=== PATIENT | female | born 1995 | race Caucasian/White ===

== ENCOUNTER 2017-05-11 10:13 | Emergency (ER) | payer BC, OTHER ==
[2017-05-11 10:24] VITALS: TEMP 97.5
--- NOTE | 2017-05-11 10:26 | EDPHY ---
H & P Stated Complaint: l sided abd pain n/v HPI/ROS: HPI CHIEF COMPLAINT: Nausea, vomiting, left-sided abdominal pain HISTORY OF PRESENT ILLNESS: Patient very pleasant 22-year-old female she presents emergency room nausea vomiting abdominal pain. She describes pain located left lower quadrant. Her only medical history that she reports to me is ovarian cyst. She states around 630 this morning she developed this pain. It has been persistent. Associated nausea vomiting. Patient describes this pain as sharp stabbing. From left flank left lower quadrant. Past Medical History: Ovarian cysts, kidney stone Past Surgical History: Denies abdominal surgery Social History: Denies daily use of drugs alcohol tobacco products Family History: Noncontributory ROS REVIEW OF SYSTEMS: A comprehensive 10 point review of systems is otherwise negative aside from elements mentioned in the history of present illness. Exam Constitutional vomiting, anxious , triage nursing summary reviewed, vital signs reviewed, awake/alert. Eyes normal conjunctivae and sclera, EOMI, PERRLA. HENT normal inspection, atraumatic, moist mucus membranes, no epistaxis, neck supple/ no meningismus, no raccoon eyes. Respiratory clear to auscultation bilaterally, normal breath sounds, no respiratory distress, no wheezing. Cardiovascular rate normal, regular rhythm, no murmur, no edema, distal pulses normal. Gastrointestinal soft, non-tender, no rebound, no guarding, normal bowel sounds, no distension, no pulsatile mass. Genitourinary no CVA tenderness. Musculoskeletal no midline vertebral tenderness, full range of motion, no calf swelling, no tenderness of extremities, no meningismus, good pulses, neurovascularly intact. Skin pink, warm, & dry, no rash, skin atraumatic. Neurologic awake, alert and oriented x 3, AAOx3, moves all 4 extremities equally, motor intact, sensory intact, CN II-XII intact, normal cerebellar, normal vision, normal speech. Psychiatric normal mood/affect. Heme/Lymph/Immune no lymphadenopathy. Differential diagnosis includes but is not limited to and in no particular order : Bowel obstruction, appendicitis, gallbladder disease, diverticulitis, colitis , enteritis, perforated viscus, gastritis, GERD, esophagitis, urinary tract infection, pyelonephritis, kidney stones Medical Decision Making: Plan for this patient IV establishment, IV fluid bolus , IV Zofran for nausea, IV Dilaudid 1 mg for pain control. Will reassess her abdomen as initially when she arrived she has vomiting and screaming and lying on her side. Appears to be uncomfortable. Re-evaluation: 1323: CT scan is reviewed negative CT scan abdomen pelvis without contrast for left-sided flank pain. No visible stone. No acute inflammatory process seen on the CT scan. However there is right adnexal mass visualized. Additionally the patient a pelvic ultrasound to evaluate this. No torsion of either ovary good blood flow but a complex right adnexal mass. This is not where she has pain. I have consulted OBGYN spoke with Dr. Johny bhatia who will be glad to see the patient in follow -up in evaluate this cystic mass. I have notified the patient as well. As for abdominal pain blood work is reviewed. I do not appreciate a high white count there is no evidence of appendicitis on exam. Her CT scan did not explain her left flank pain. She did have 3+ blood in her urine. It is possible she passed a stone. She is feeling better. IV fluids pain medicine she is hemodynamically stable. Abdomen is soft nontender this time. Source: Patient - Personal History LMP (Females 10-55): 15-21 Days Ago Current Tetanus/Diphtheria Vaccine: Yes Tetanus Vaccine Date: 2013 - Medical/Surgical History Hx Asthma: No Hx Chronic Respiratory Disease: No Hx Diabetes: No Hx Cardiac Disease: No Hx Renal Disease: No Hx Cirrhosis: No Hx Alcoholism: No Hx HIV/AIDS: No Hx Splenectomy or Spleen Trauma: No Other PMH: tonsilectomy , OVARIAN CYSTS, thyroid disorder-T3, Asthma when 7 yrs old - Social History Smoking Status: Current some day smoker Constitutional: Initial Vital Signs Temperature (C) 36.4 C 05/11/17 10:22 Heart Rate 69 05/11/17 10:22 Respiratory Rate 22 H 05/11/17 10:22 Blood Pressure 99/71 L 05/11/17 10:22 O2 Sat (%) 100 05/11/17 10:22 O2 Delivery Mode Room Air Allergies/Adverse Reactions: amoxicillin [Amoxicillin] Allergy (Verified 05/11/17 10:21) avocado [Avocado] Allergy (Verified 05/11/17 10:21) banana [Banana] Allergy (Verified 05/11/17 10:21) kiwi Allergy (Verified 05/11/17 10:21) latex Allergy (Verified 05/11/17 10:21) Home Medications: Medication Instructions Recorded Depo-Provera 05/11/17 Medical Decision Making - Diagnostics Imaging Results: Imaging Impressions Abdomen/Pelvis CT 05/11/17 10:36 Impression: 1. There is no evidence of nephroureterolithiasis or obstructive uropathy. 2. Mild constipation. 3. There is a 3.5 x 3.7 cm right ovarian cystic mass. Correlation with sonography may be of benefit in further evaluation. Attention: This CT examination is specifically designed to evaluate patients who are clinically suspected of having acute obstructive uropathy. This examination does not use radiographic contrast, and as such, provides only a limited evaluation of the abdomen, pelvis, and retroperitoneum. If there is further clinical suspicion for pathological conditions other than obstructive uropathy, a complete CT evaluation of the abdomen and pelvis utilizing intravenous, oral, and rectal contrast should be considered. Findings were discussed with Skip Hooper MD at 12:54, on 05/11/2017. Pelvic/Renal Ultrasound 05/11/17 12:00 Impression: There is a complex cystic-solid right ovarian mass measuring 3.6 cm in diameter, with differential considerations including an endometrioma, a hemorrhagic cyst, or a cystadenomatous tumor. Gynecologic consultation and follow-up sonography is suggested. There is no evidence of torsion or free fluid. Findings and recommendations were discussed with Skip Hooper MD at 13:04, on 05/11/2017. - Data Points Laboratory Results: Laboratory Results 05/11/17 10:30 05/11/17 10:30 05/11/17 05/11/17 05/11/17 12:45 10:30 10:30 WBC RBC Hgb Hct MCV MCH MCHC RDW Plt Count MPV Neut % (Auto) Lymph % (Auto) [place] % (Auto) Eos % (Auto) Baso % (Auto) Nucleat RBC Rel Count Absolute Neuts (auto) Absolute Lymphs (auto) Absolute Monos (auto) Absolute Eos (auto) Absolute Basos (auto) Absolute Nucleated RBC Immature Gran % Immature Gran # Sodium 142 mEq/L mEq/L (134-144) Potassium 3.6 mEq/L mEq/L (3.5-5.2) Chloride 106 mEq/L mEq/L (97-110) Carbon Dioxide 19 mEq/l L mEq/l (22-31) Anion Gap 17 mEq/L H mEq/L (8-16) BUN 18 mg/dL mg/dL (7-23) Creatinine 0.8 mg/dL mg/dL (0.6-1.0) Estimated GFR > 60 Glucose 113 mg/dL H mg/dL (70-100) Calcium 9.4 mg/dL mg/dL (8.5-10.4) Total Bilirubin 0.5 mg/dL mg/dL (0.1-1.4) Conjugated Bilirubin 0.2 mg/dL mg/dL (0.0-0.5) Unconjugated Bilirubin 0.3 mg/dL mg/dL (0.0-1.1) AST 19 IU/L IU/L (14-46) ALT 25 IU/L IU/L (9-52) Alkaline Phosphatase 40 IU/L IU/L (38-126) Total Protein 7.1 g/dL g/dL (6.3-8.2) Albumin 4.4 g/dL g/dL (3.5-5.0) Lipase 172 IU/L IU/L (23-300) Beta HCG, Qual NEGATIVE Urine Color YELLOW Urine Appearance HAZY Urine pH 5.0 (5.0-7.5) Ur Specific [place] 1.021 (1.002-1.030) Urine Protein NEGATIVE (NEGATIVE) Urine Ketones NEGATIVE (NEGATIVE) Urine Blood 3+ H (NEGATIVE) Urine Nitrate NEGATIVE (NEGATIVE) Urine Bilirubin NEGATIVE (NEGATIVE) Urine Urobilinogen NEGATIVE EU EU (0.2-1.0) Ur Leukocyte Esterase NEGATIVE (NEGATIVE) Urine RBC 25-50 /hpf H /hpf (0-3) Urine WBC 1-3 /hpf /hpf (0-3) Ur Epithelial Cells TRACE /lpf /lpf (NONE-1+) Urine Mucus 3+ /lpf H /lpf (NONE-1+) Urine Glucose NEGATIVE (NEGATIVE) 05/11/17 10:30 WBC 9.03 10^3/uL 10^3/uL (3.80-9.50) RBC 4.56 10^6/uL 10^6/uL (4.18-5.33) Hgb 13.2 g/dL g/dL (12.6-16.3) Hct 39.7 % % (38.0-47.0) MCV 87.1 fL fL (81.5-99.8) MCH 28.9 pg pg (27.9-34.1) MCHC 33.2 g/dL g/dL (32.4-36.7) RDW 14.6 % % (11.5-15.2) Plt Count 290 10^3/uL 10^3/uL (150-400) MPV 10.9 fL fL (8.7-11.7) Neut % (Auto) 49.2 % % (39.3-74.2) Lymph % (Auto) 41.0 % % (15.0-45.0) Coles % (Auto) 6.4 % % (4.5-13.0) Eos % (Auto) 2.2 % % (0.6-7.6) Baso % (Auto) 1.0 % % (0.3-1.7) Nucleat RBC Rel Count 0.0 % % (0.0-0.2) Absolute Neuts (auto) 4.44 10^3/uL 10^3/uL (1.70-6.50) Absolute Lymphs (auto) 3.70 10^3/uL H 10^3/uL (1.00-3.00) Absolute Monos (auto) 0.58 10^3/uL 10^3/uL (0.30-0.80) Absolute Eos (auto) 0.20 10^3/uL 10^3/uL (0.03-0.40) Absolute Basos (auto) 0.09 10^3/uL 10^3/uL (0.02-0.10) Absolute Nucleated RBC 0.00 10^3/uL 10^3/uL (0-0.01) Immature Gran % 0.2 % % (0.0-1.1) Immature Gran # 0.02 10^3/uL 10^3/uL (0.00-0.10) Sodium Potassium Chloride Carbon Dioxide Anion Gap BUN Creatinine Estimated GFR Glucose Calcium Total Bilirubin Conjugated Bilirubin Unconjugated Bilirubin AST ALT Alkaline Phosphatase Total Protein Albumin Lipase Beta HCG, Qual Urine Color Urine Appearance Urine pH Ur Specific [place] Urine Protein Urine Ketones Urine Blood Urine Nitrate Urine Bilirubin Urine Urobilinogen Ur Leukocyte Esterase Urine RBC Urine WBC Ur Epithelial Cells Urine Mucus Urine Glucose Medications Given: Discontinued Medications Hydromorphone HCl (Dilaudid) 1 mg IVP EDNOW ONE Stop: 10/22/17 10:29 Last Admin: 05/11/17 10:34 Dose: 1 mg Sodium Chloride (Ns) 1,000 mls @ 0 mls/hr IV EDNOW ONE; Wide Open PRN Reason: Protocol Stop: 05/11/17 10:29 Last Admin: 05/11/17 10:35 Dose: 1,000 mls Sodium Chloride (Ns) 1,000 mls @ 0 mls/hr IV ONCE ONE PRN Reason: Wide Open Stop: 05/11/17 11:51 Last Admin: 05/11/17 12:01 Dose: 1,000 mls Ketorolac Tromethamine (Toradol) 30 mg IVP EDNOW ONE Stop: 05/11/17 11:56 Last Admin: 05/11/17 12:00 Dose: 30 mg Ondansetron HCl (Zofran) 4 mg IVP EDNOW ONE Stop: 05/11/17 10:29 Last Admin: 05/11/17 10:35 Dose: 4 mg Departure - Departure Disposition: Home, Routine, Self-Care Clinical Impression: Ovarian mass, right Abdominal pain Qualifiers: Abdominal location: left upper quadrant Qualified Code(s): R10.12 - Left upper quadrant pain Condition: Good Instructions: Acute Abdominal Pain (ED), Ovarian Cyst (ED) Additional Instructions: 1. Return immediately to the emergency room if develops worsening abdominal pain fever vomiting. 2. Please follow up with OBGYN about the right ovarian mass. Referrals: NONE *PRIMARY CARE P,. [Primary Care Provider] - As per Instructions Akhil Genao MD [Medical Doctor] - As per Instructions
[2017-05-11] MEDS ORDERED: HYDROmorphONE/DILAUDID 1 MG/ML INJ IVP ONE (10:28)
[2017-05-11] MEDS ORDERED: NS 1,000 ML IV ONE ×2 (10:28→11:50)
[2017-05-11] MEDS ORDERED: fentaNYL 100 MCG/2 ML INJ ONE (10:28)
[2017-05-11] MEDS ORDERED: ONDANSETRON 4 MG/2 ML VIAL ONE (10:28)
[2017-05-11] MEDS ORDERED: ONDANSETRON 4 MG/2 ML VIAL IVP ONE (10:28)
[2017-05-11 10:47] LABS: % IMMATURE GRANULYOCYTES 0.2 % (0.0-1.1); ABSOLUTE IMMATURE GRANULOCYTES 0.02 10^3/uL (0.00-0.10); ADD DIFF? NO; ADD MORPH? NO; ADD SCAN? NO; ATYPICAL LYMPHOCYTE FLAG 10 (0-99); FRAGMENT RBC FLAG 0 (0-99); HEMATOCRIT 39.7 % (38.0-47.0); HEMOGLOBIN 13.2 g/dL (12.6-16.3); LEFT SHIFT FLG 0 (0-99); LIPEMIA HEMOLYSIS FLAG 80 (0-99); MEAN CELL HEMOGLOBIN 28.9 pg (27.9-34.1); MEAN CELL HEMOGLOBIN CONCENTR. 33.2 g/dL (32.4-36.7); MEAN CELL VOLUME 87.1 fL (81.5-99.8); MEAN PLATELET VOLUME 10.9 fL (8.7-11.7); PLATELET CLUMPS FLAG 10 (0-99); PLATELET COUNT 290 10^3/uL (150-400); RED BLOOD CELL COUNT 4.56 10^6/uL (4.18-5.33); RED CELL DISTRIBUTION WIDTH 14.6 % (11.5-15.2)
[2017-05-11 11:00] LABS: ALANINE AMINOTRANSFERASE 25 IU/L (9-52); ALBUMIN 4.4 g/dL (3.5-5.0); ALKALINE PHOSPHATASE 40 IU/L (38-126); ANION GAP 17 mEq/L (8-16); ASPARTATE AMINOTRANSFERASE 19 IU/L (14-46); BILIRUBIN,TOTAL 0.5 mg/dL (0.1-1.4); BILIRUBIN-CONJUGATED 0.2 mg/dL (0.0-0.5); BILIRUBIN-UNCONJUGATED 0.3 mg/dL (0.0-1.1); CALCIUM 9.4 mg/dL (8.5-10.4); CARBON DIOXIDE 19 mEq/l (22-31); CHLORIDE 106 mEq/L (97-110); CREATININE 0.8 mg/dL (0.6-1.0); GLOMERULAR FILTRATION RATE > 60; GLUCOSE 113 mg/dL (70-100); POTASSIUM 3.6 mEq/L (3.5-5.2); SODIUM 142 mEq/L (134-144); TOTAL PROTEIN 7.1 g/dL (6.3-8.2)
[2017-05-11] MEDS ORDERED: KETOROLAC 30 MG/1 ML SDV IVP ONE (11:55)
[2017-05-11 12:56] LABS: COLOR YELLOW; LEUKOCYTE ESTERASE,URINE NEGATIVE (NEGATIVE); NITRITE,URINE NEGATIVE (NEGATIVE)
[2017-05-11 13:00] LABS: MUCUS 3+ /lpf (NONE-1+); RBC,URINE 25-50 /hpf (0-3)
[2017-05-11 14:21] VITALS: BP 112/51; PULSE 80; RESP 16; O2SAT 96
== END 2017-05-11 14:29 | disposition home or self-care (01) ==
PROC: 3E0337Z Introduction of Electrolytic and Water Balance Substance into Peripheral Vein, Percutaneous Approach (ICD-10-PCS; principal; 2017-05-11)
DX: N83.8 Other noninflammatory disorders of ovary, fallopian tube and broad ligament (principal); J45.909 Unspecified asthma, uncomplicated; F17.200 Nicotine dependence, unspecified, uncomplicated; E86.9 Volume depletion, unspecified; Z91.040 Latex allergy status
CPT/HCPCS: 96374; J1170; J1885; J2405; J3010

== ENCOUNTER 2017-12-04 19:33 | Emergency (ER) | payer BC ==
[2017-12-04] MEDS ORDERED: fentaNYL 100 MCG/2 ML INJ ONE (19:41)
[2017-12-04] MEDS ORDERED: ONDANSETRON 4 MG/2 ML VIAL ONE (19:41)
[2017-12-04] MEDS ORDERED: ONDANSETRON 4 MG/2 ML VIAL IVP ONE ×2 (19:46)
[2017-12-04] MEDS ORDERED: fentaNYL 100 MCG/2 ML INJ IVP ONE ×2 (19:46)
[2017-12-04] MEDS ORDERED: FAMOTIDINE 20 MG/NACL 50 ML IV ONE (19:46)
[2017-12-04] MEDS ORDERED: NS 1,000 ML IV ONE ×3 (19:46)
--- NOTE | 2017-12-04 19:55 | EDPHY ---
H & P Time Seen by Provider: 12/04/17 19:36 HPI/ROS: HPI Upper abdominal pain, vomiting. 22-year-old female by private vehicle with boyfriend. She reports epigastric and mid upper abdominal pain onset at 4:00 p.m.. She has had associated nausea with multiple episodes of vomiting. Now dry heaving. No prior abdominal surgical history. She does have a history of kidney stones and ovarian cysts. Last bowel movement this morning. No diarrhea. No bloody or melenic stool. ROS: Constitutional: No fever, no chills. No weakness. Eyes: No discharge. No changes in vision. ENT: No sore throat. No nasal congestion or rhinorrhea. Respiratory: No cough. No shortness of breath. Cardiac: No chest pain, no palpitations. Gastrointestinal: As above, no diarrhea. Genitourinary: No hematuria. No dysuria or increased frequency with urination. Musculoskeletal: No back pain. No neck pain. No myalgias or arthralgias. Skin: No rashes. Neurological: No headache. No focal weakness or altered sensation. Past medical history: Ovarian cysts, kidney stone on the right. Seen with similar presentation in April of [address] scan at that time. Social history: Nonsmoker. Here with her boyfriend. Denies alcohol. Physical Exam: General Appearance: Alert, appears uncomfortable, very dramatic. This patient is responding to questions appropriately and in full sentences. This patient appears well-hydrated and well-nourished. Eyes: Pupils equal and round no pallor or injection. No lid edema, erythema or injection. Respiratory: There are no retractions, lungs are clear to auscultation with good air movement bilaterally. Cardiovascular: Regular rate and rhythm. Borderline tachycardia. No murmur. Gastrointestinal: Abdomen is soft with epigastric and right upper quadrant tenderness on palpation, no masses, bowel sounds normal. No focal tenderness at McBurney's point. No Rodriguez sign. Neurological: Motor sensory function is grossly intact. Cranial nerves are normal. Gait is normal. Skin: Warm and dry, no rashes. Musculoskeletal: Neck is supple and nontender. Extremities are symmetrical. All joints range without pain or impingement. Psychiatric: No agitation. No depression. Database: EKG: Imaging: Right upper quadrant ultrasound: Negative. Gallbladder in ductal system appear normal. No other significant findings. Results were discussed with staff radiologist Dr. Riki Saeed. Upright abdominal x-ray: Negative for obstruction. No free air. Interpreted by me. Procedures: Emergency department course: Vital signs reviewed from triage. She was tachycardic with ventricular rate of 111. Vital signs otherwise normal. IV placed. She was started on IV normal saline with 1-2 L to be given over the next 1-2 hours. She was initially given 4 mg of IV Zofran, 20 mg of IV Pepcid and 50 mcg of IV fentanyl. Right upper quadrant ultrasound imaging to be obtained. Patient has had IV hydromorphone at 0.5 mg for pain control. She had a repeat dose of Zofran at 4 mg for nausea. 9:30 p.m., patient given 6.25 mg of IV Phenergan for nausea. 10:25 p.m., patient re-evaluated. Sleeping and comfortable. Easily arousable. Repeat abdominal exam she is soft, nontender nondistended. She is drinking some Gatorade. She feels comfortable going home at this time with her friend. Leukocytosis likely secondary to vomiting. I feel she is safe for discharge. She will be sent home with Zofran and Phenergan for nausea. Follow-up and return to emergency department precautions were thoroughly reviewed with her. All of her questions were answered. She was discharged in good condition with her friend who is driving. Differential Diagnosis: The differential diagnosis on this patient includes but is not limited to food borne illness, non ulcerative gastritis. Perforated peptic ulcer, appendicitis , cholecystitis, pancreatitis, ureterolithiasis unlikely. This represents a partial list of diagnoses considered. These considerations are based on history , physical exam, past history, reassessment and diagnostic testing. Smoking Status: Current some day smoker Constitutional: Initial Vital Signs Temperature (C) 37.0 C 12/04/17 19:35 Heart Rate 111 H 12/04/17 19:35 Respiratory Rate 20 12/04/17 19:35 Blood Pressure 130/78 H 12/04/17 19:35 O2 Sat (%) 100 12/04/17 19:35 O2 Delivery Mode Room Air Allergies/Adverse Reactions: amoxicillin [Amoxicillin] Allergy (Verified 12/04/17 19:34) avocado [Avocado] Allergy (Verified 12/04/17 19:34) banana [Banana] Allergy (Verified 12/04/17 19:34) kiwi Allergy (Verified 12/04/17 19:34) latex Allergy (Verified 12/04/17 19:34) Home Medications: Medication Instructions Recorded Depo-Provera 05/11/17 Medical Decision Making - Data Points Laboratory Results: Laboratory Results 12/04/17 19:50 12/04/17 19:50 Medications Given: Discontinued Medications Fentanyl (Sublimaze) 50 mcg IVP EDNOW ONE Stop: 12/04/17 19:47 Last Admin: 12/04/17 19:53 Dose: 50 mcg Fentanyl (Sublimaze) 50 mcg IVP EDNOW ONE Stop: 12/04/17 19:47 Last Admin: 12/04/17 21:09 Dose: Not Given Hydromorphone HCl (Dilaudid) 0.5 mg IVP EDNOW ONE Stop: 12/04/17 20:31 Last Admin: 12/04/17 20:33 Dose: 0.5 mg Sodium Chloride (Ns) 1,000 mls @ 0 mls/hr IV ONCE ONE PRN Reason: Wide Open Stop: 12/04/17 19:47 Last Admin: 12/04/17 19:50 Dose: 1,000 mls Sodium Chloride (Ns) 1,000 mls @ 0 mls/hr IV EDNOW ONE; Wide Open PRN Reason: Protocol Stop: 12/04/17 19:47 Last Admin: 12/04/17 20:08 Dose: 1,000 mls Sodium Chloride (Ns) 1,000 mls @ 0 mls/hr IV EDNOW ONE; Wide Open PRN Reason: Protocol Stop: 12/04/17 19:47 Last Admin: 12/04/17 20:12 Dose: Not Given Famotidine/Sodium Chloride (Pepcid 20 Mg (Premix)) 50 mls @ 200 mls/hr IV EDNOW ONE Stop: 12/04/17 20:00 Last Admin: 12/04/17 19:57 Dose: 50 mls Ondansetron HCl (Zofran) 4 mg IVP EDNOW ONE Stop: 12/04/17 19:47 Last Admin: 12/04/17 19:53 Dose: 4 mg Ondansetron HCl (Zofran) 4 mg IVP EDNOW ONE Stop: 12/04/17 19:47 Last Admin: 12/04/17 20:12 Dose: 4 mg Ondansetron HCl (Zofran Odt 4 Mg Prepack#2) 1 btl TAKEHOME EDNOW ONE Stop: 12/04/17 22:31 Last Admin: 12/04/17 22:41 Dose: 1 btl Promethazine HCl (Phenergan) 6.25 mg IVP ONCE ONE Stop: 12/04/17 21:44 Last Admin: 12/04/17 21:46 Dose: 6.25 mg Promethazine HCl (Phenergan 25 Mg Prepack #4) 1 btl TAKEHOME EDNOW ONE Stop: 12/04/17 22:31 Last Admin: 12/04/17 22:43 Dose: 1 btl Departure - Departure Disposition: Home, Routine, Self-Care Clinical Impression: Abdominal pain, Vomiting, Leukocytosis Condition: Good Instructions: Ondansetron (By mouth), Promethazine (Into the rectum), Acute Nausea and Vomiting (ED), Abdominal Pain (ED) Additional Instructions: Read and follow provided instructions. Follow-up with your primary care physician tomorrow for re-evaluation. Take medication as prescribed for nausea. Keep well hydrated. A good fluid to drink is Gatorade mixed with water in a 1- 1 dilution over ice. Return to the emergency department for worsening symptoms, worsening abdominal pain, vomiting and inability to keep fluids down despite medications or other serious concerns. Referrals: NONE *PRIMARY CARE P,. [Primary Care Provider] - As per Instructions
[2017-12-04 20:02] LABS: PLATELET COUNT 296 10^3/uL (150-400)
[2017-12-04] MEDS ORDERED: HYDROmorphONE/DILAUDID 2 MG/ML INJ IVP ONE (20:30)
[2017-12-04] MEDS ORDERED: PROMETHAZINE HCL 25 MG/ML INJ IVP ONE (21:43)
[2017-12-04 22:28] VITALS: BP 138/76
[2017-12-04] MEDS ORDERED: PROMETHAZINE 25 MG PREPACK #4 BTL TAKEHOME ONE (22:30)
[2017-12-04] MEDS ORDERED: ONDANSETRON 4MG PREPACK#2 BTL TAKEHOME ONE (22:30)
== END 2017-12-04 22:53 | disposition home or self-care (01) ==
DX: R11.10 Vomiting, unspecified (principal); D72.829 Elevated white blood cell count, unspecified; E86.9 Volume depletion, unspecified; Z91.040 Latex allergy status
CPT/HCPCS: 96374; J1170; J2405; J2550; J3010

== ENCOUNTER → 2018-06-17 | Outpatient (CLI) | payer BC | LOC: BMCIMAGING 15:10 | DX: N83.201 Unspecified ovarian cyst, right side (principal) ==